=== PATIENT | female | born 1965 ===

== ENCOUNTER 2021-11-09 08:49 | Outpatient (CLI) | payer OTHER | END 2021-11-09 08:51 | disposition home or self-care (01) | LOC: SONOGRAMA 08:49 | PROVIDERS: ATTEND Pathology Anatomic Pathology & Clinical Pathology | DX: E04.8 Other specified nontoxic goiter (principal) ==

== ENCOUNTER 2022-10-28 11:00 | Inpatient (IN) | payer OTHER ==
[2022-10-28] MEDS ORDERED: ZIAC 2.5-6.251 EACH PO (12:45)
[2022-10-28] MEDS ORDERED: MEDROL4 MG PO (12:45)
[2022-10-28] MEDS ORDERED: LIPITOR40 M1 PO (12:45)
[2022-10-28] MEDS ORDERED: LYRICA225 MG PO (12:45)
[2022-10-28] MEDS ORDERED: CELEBREX200MG PO (12:45)
[2022-11-03] MEDS ORDERED: CLORAZEPATE DI7.5 MG (11:17)
[2022-11-03] MEDS ORDERED: FAMOTIDINE40 MG (11:17)
[2022-11-03] MEDS ORDERED: ATORVASTATIN CA10 MG (11:17)
[2022-11-03] MEDS ORDERED: DESVENLAFAXINE50 M3 (11:17)
== END 2022-11-04 12:32 | disposition home or self-care (01) | DRG 331 ==
LOC: O/R 11-02 05:15 → SURG 11-02 11:00 → SURH 11-02 11:08
PROVIDERS: ADMIT Colon & Rectal Surgery; ATTEND Colon & Rectal Surgery
PROC: 0DBP4ZZ Excision of Rectum, Percutaneous Endoscopic Approach (ICD-10-PCS; 2022-11-02)
PROC: 0DJD8ZZ Inspection of Lower Intestinal Tract, Via Natural or Artificial Opening Endoscopic (ICD-10-PCS; 2022-11-02)
PROC: 0DTN4ZZ Resection of Sigmoid Colon, Percutaneous Endoscopic Approach (ICD-10-PCS; principal; 2022-11-02 11:00)
DX: K57.32 Diverticulitis of large intestine without perforation or abscess without bleeding (principal); Z20.822 Contact with and (suspected) exposure to COVID-19

== ENCOUNTER 2023-03-21 10:41 | Outpatient (CLI) | payer OTHER ==
[~2023-03-21 10:41] MED LIST: ATORVASTATIN CA10 MG; CELEBREX200MG PO; CLORAZEPATE DI7.5 MG; DESVENLAFAXINE50 M3; FAMOTIDINE40 MG; LIPITOR40 M1 PO; LYRICA225 MG PO; MEDROL4 MG PO; ZIAC 2.5-6.251 EACH PO
== END 2023-03-21 10:43 | disposition home or self-care (01) ==
LOC: SONOGRAMA 10:41
PROVIDERS: ATTEND Pathology Anatomic Pathology & Clinical Pathology
DX: D34 Benign neoplasm of thyroid gland (principal); E04.9 Nontoxic goiter, unspecified

== ENCOUNTER 2024-04-26 09:00 | Outpatient (CLI) | payer OTHER | END 2024-04-26 09:14 | disposition home or self-care (01) | LOC: SONOGRAMA 09:00 | PROVIDERS: ATTEND Pathology Anatomic Pathology & Clinical Pathology | DX: D34 Benign neoplasm of thyroid gland (principal); E07.89 Other specified disorders of thyroid; E04.8 Other specified nontoxic goiter ==